=== PATIENT | female | born 1970 | race Asian ===

== ENCOUNTER 2017-11-29 19:14 | Emergency (ER) | payer BC, OTHER ==
[~2017-11-29] VITALS: Ht 162.6 cm; Wt 63.5 kg
[2017-11-29] MEDS: HYDROCODONE/APAP 5-325MG TABLET PO ONE (20:12)
[2017-11-29] MEDS ORDERED: HYDROCODONE/APAP 5-325MG TABLET ONE (20:29)
--- NOTE | 2017-11-29 21:20 | NUR ---
Patient discharged to home in stable conditon. Written and verbal after care instructions given with RX and imaging disk. Patient verbalizes understanding of instructions. pt ambulated out of ED with steady gait. informed to not drive while taking prescribed medication.
== END 2017-11-29 21:20 | disposition home or self-care (01) ==
LOC: ER 19:15
DX: S00.83XA Contusion of other part of head, initial encounter (principal); W22.8XXA Striking against or struck by other objects, initial encounter; Y93.89 Activity, other specified; Y92.89 Other specified places as the place of occurrence of the external cause; Y99.8 Other external cause status
CPT/HCPCS: 70150; A4663